=== PATIENT | female | born 1985 | race Caucasian/White ===

== ENCOUNTER 2016-10-13 22:00 | Emergency (ER) | payer SELFPAY ==
[~2016-10-13] VITALS: Ht 152.4 cm; Wt 56.5 kg
[~2016-10-13 22:00] MED LIST: IBUP600 PO; OXYC1SOL5 PO; TAB-TAB PO
[2016-10-13 22:02] VITALS: BP 122/72; PULSE 96; RESP 16; TEMP 98.7; O2SAT 98
[2016-10-13] MEDS ORDERED: MUCI600T PO (22:21)
[2016-10-13] MEDS ORDERED: PRED-503 PO (22:39)
[2016-10-13] MEDS ORDERED: ALBU6.7H INH (22:39)
[2016-10-13] MEDS ORDERED: ZITH250T PO (22:39)
[2016-10-13] MEDS ORDERED: predniSONE 20 MG TAB PO ONE (22:45)
[2016-10-13] MEDS ORDERED: AZITHROMYCIN 250 MG TAB PO ONE (22:45)
--- NOTE | 2016-10-13 22:45 | PD ---
HPI Chief Complaint: Cold / Flu Symptoms Time Seen by Provider: 22:41 Travel History International Travel<30 days: No Contact w/Intl Traveler<30days: No Traveled to known affect area: No History of Present Illness HPI 31-year-old white female presents to emergency Department with complaints of cough, congestion and sinus pain over the past week. She states that she had taken 3 days worth of amoxicillin at the onset of her illness. She states that she seemed to have a momentarily improvement of her symptoms but then after stopping antibiotics symptoms came on much stronger. She does admit to having subjective fever chills, ear pain, sore throat, sinus congestion, sinus pain, cough, shortness of breath, wheezing, nausea and general malaise. She denies any vomiting. No abdominal pain. No dysuria, frequency or rashes. She states that she quit smoking 2 months ago but does use a VAPER. [facility] Past Medical History Narrative Medical Asthma Asthma: Yes Diminished Hearing: No Musculoskeletal: Yes (SCIATICA) Immunizations Current: Yes Tetanus Vaccination: < 5 Years ?: Not LMP: 09/25/16 : 2 Para: 1 Miscarriage: 0 : 1 Past Surgical History Surgical History: No Previous Surgery Social History Alcohol Use: No Tobacco Use: Yes (E-CIG) Substance Use: No Allergies-Medications (Allergen,Severity, Reaction): Coded Allergies: No Known Allergies (Verified , 10/13/16) Reported Meds & Prescriptions Reported Meds & Active Scripts Active Proventil Hfa 6.7 GM Inh (Albuterol Sulfate) 90 Mcg/Act Aer 2 Puff INH Q4-6H PRN Deltasone (Prednisone) 20 Mg Tab 20 Mg PO TID Zithromax (Azithromycin) 250 Mg Tab 250 Mg PO DIRECTED Take 2 tabs (500 mg) on day 1 then 1 tab daily x 4 days. Reported Mucinex ER 12 HR (Guaifenesin) 600 Mg Glenda 600 Mg PO BID Review of Systems Except as stated in HPI: all other systems reviewed are Neg Physical Exam Narrative GENERAL: Well-developed, well-nourished in no acute distress. Nontoxic appearing. HEAD: Normocephalic, atraumatic. Complains of pain on percussion of her maxillary sinuses EYES: Pupils equal round and reactive. Extraocular motions intact. No scleral icterus. No injection or drainage. ENT: TMs clear without erythema. The external auditory canals clear. Nose: clear nasal discharge . Posterior pharynx is pink and moist. No tonsillar edema or exudate. Uvula midline. Airway patent. NECK: Trachea midline.Supple, nontender, moves head freely. No central bony tenderness or spasm. CARDIOVASCULAR: Regular rate and rhythm without murmurs, gallops, or rubs. RESPIRATORY: Scattered rhonchi with expiratory wheeze. No Rales. No respiratory distress. GASTROINTESTINAL: Abdomen soft, non-tender, nondistended. No hepato-splenomegaly , or palpable masses. No guarding. EXTREMITIES: No clubbing, cyanosis, or edema. No joint tenderness, effusion, or edema noted. BACK: Nontender without deformity or crepitance. No flank tenderness. Data Data Last Documented VS Vital Signs Date Time Temp Pulse Resp B/P Pulse Ox O2 Delivery O2 Flow Rate FiO2 10/13/16 22:21 16 98 Room Air 10/13/16 22:02 98.7 96 122/72 Orders Prednisone (Deltasone) (10/13/16 22:45) Azithromycin (Zithromax) (10/13/16 22:45) MDM Medical Decision Making Medical Screen Exam Complete: Yes Emergency Medical Condition: Yes Medical Record Reviewed: Yes Differential Diagnosis MDM: High Differential diagnoses: Pneumonia, bronchitis, URI, asthma, RAD, legionnaire's disease, SARS, ARDS, influenza, bronchiolitis, RSV,PE,CHF Narrative Course Patient's given 60 mg of prednisone, Zithromax 500 mg by mouth. This is asthmatic bronchitis Diagnosis Primary Impression: Asthmatic bronchitis Patient Instructions: General Instructions Departure Forms: Tests/Procedures, Work Release Special Instructions: No work 2-3 days. Additional Instructions: Rest. Increase fluids. Tylenol and Advil. Robitussin-DM. Zithromax, prednisone, and albuterol. Followup with your Dr. in one week. Return to the ER for any problems. Med/Other Pt SpecificInfo: Prescription(s) given Scripts Albuterol 6.7 GM Inh (Proventil Hfa 6.7 GM Inh)90 Mcg/Act Aer2 Puff INH Q4-6H PRN (SHORTNESS OF BREATH) #1 INHALER Prov:Boby Schwarz MD 10/13/16 Prednisone (Deltasone)20 Mg Tab20 Mg PO TID #15 TAB Prov:Boby Schwarz MD 10/13/16 Azithromycin (Zithromax)250 Mg Dwi641 Mg PO DIRECTED #6 TAB Take 2 tabs (500 mg) on day 1 then 1 tab daily x 4 days. Prov:Boby Schwarz MD 10/13/16 Disposition: 01 DISCHARGE HOME Condition: Stable Venkatesh Lopez Oct 13, 2016 22:44
== END 2016-10-13 23:02 | disposition home or self-care (01) ==
LOC: NEPB 22:00
DX: J45.909 Unspecified asthma, uncomplicated (principal); Z87.891 Personal history of nicotine dependence
CPT/HCPCS: 99283; J7512